=== PATIENT | female | born 1940 | race Caucasian/White ===

== ENCOUNTER 2016-06-12 10:00 | Inpatient (IN) | payer MEDICARE, MEDICAID, OTHER ==
[~2016-06-12] VITALS: Ht 157.5 cm; Wt 94.0 kg
--- NOTE | ~2016-06-12 | PUL ---
PATIENT'S NAME: CM MCMAHON [facility] AGE: 76 Y [address] ROOM: [facility] [place] [address] LOCATION: [facility] ADMIT DATE: 06/12/2016 Pulmonary DISCHARGE DATE: 06/16/2016 FAMILY PHYSICIAN: Physician, Unknown ATTENDING PHYSICIAN: Alex Wolff NAME OF PROCEDURE: Overnight Pulse Oximetry DATE OF PROCEDURE: June 14 to June 15 2016 REASON FOR EXAM: Nocturnal hypoxemia RESULTS: The test was most likely performed on room air. Recording time was 9 hours, 2 minutes, and 48 seconds with total valid sampling of 8 hours 45 minutes and 40 seconds. The highest pulse was 111, lowest pulse was 44, with a mean pulse of 62. Highest SpO2 was 98%, lowest SpO2 was 71% with a mean SpO2 of 89%. The patient spent 3 hours, 32 minutes, and 20 seconds with oxygen saturations less than 89% representing 40.4% of the total sleep time. The desaturation event index was significantly elevated 65.7. PHYSICIAN INTERPRETATION: The patient has evidence of very severe nocturnal hypoxia and would qualify for supplemental oxygen as per Medicare criteria. However because of the severity of her nocturnal hypoxia with an elevated desaturation event index a sleep study is recommended at this time. MD BRO BECKMAN/colette /[id number] dtt: 06/23/16 0942 , SALLY KIMBLE dtd: 06/22/16 1118
--- NOTE | ~2016-06-12 | NDGEN ---
PATIENT'S NAME: [facility] AGE: 76 Y [address] ROOM: [place] [address] LOCATION: [facility] ADMIT DATE: 06/12/2016 Neurodiagnostics DISCHARGE DATE: FAMILY PHYSICIAN: PHYSICIAN, UNKNOWN ATTENDING PHYSICIAN: MITCH PERRY PROCEDURE: ELECTROENCEPHALOGRAM DATE OF PROCEDURE: 06/13/2016 TIME: 8:25 a.m. INDICATIONS: This is a 76-year-old female patient who presents with about a week of progressive confusion, elevation in her creatinine kinase, likely consistent with rhabdomyolysis in the setting of renal failure versus neuroleptic malignant syndrome. FINDINGS: General background rhythm reveals high amplitude 50 to 75 microvolt slow background rhythm in general in theta range that was seen throughout the whole recording. Occasionally, there would be an odd spike that would show up particularly in the left temporal and frontal leads. This was not consistent, but may be associated with a possibility of a brief myoclonic jerk or muscle twitch, and the patient did have some arousal. The background rhythm did speed up to near alpha rhythm of around 8 to 9 Hz which essentially was progressively normal throughout the recording. There was no seizure activity recorded. IMPRESSION: Basically, some slow background rhythm that increased to near normal background rhythm into the recording. There were occasional spikes seen intermittently which may represent a muscle twitch or myoclonic jerk, but this does not seem to be epileptiform in nature. There is no evidence of any seizure activity. MD YO ALLEN/richal PATIENT'S NAME: [facility] AGE: 76 Y [address] ROOM: [place] [address] LOCATION: [facility] ADMIT DATE: 06/12/2016 Neurodiagnostics DISCHARGE DATE: FAMILY PHYSICIAN: PHYSICIAN, UNKNOWN ATTENDING PHYSICIAN: MITCH PERRY /[id number] dtt: 06/29/16 1437 , EDGAR CRUZd: 06/14/16 1849
--- NOTE | ~2016-06-12 | ECHO ---
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 Summary Technically difficult exam due to lung interference. Normal LV/RV size and systolic function. The estimated left ventricular ejection fraction is 60%. Moderate concentric left ventricular hypertrophy. Diastolic assessment reveals Grade II pseudonormal diastolic function . The left atrium is mildly dilated. IVC measures 2.1 cm with partial inspiratory collapse. There is mild to moderate aortic regurgitation by color Doppler. Mild tricuspid regurgitation by color Doppler. There is mild pulmonary hypertension. The pulmonary pressure (RVSP) is 47 mmHg. Procedure Type of Study TTE procedure:2D Echocardiogram, M-Mode, Doppler , Color Doppler. Procedure Date Date: 06/14/2016 Start: 03:27 PM Study Location: Inpatient Portable Technical Quality: Adequate visualization Indications:New onset a-fib. Appropriate Use Criteria: 9 Patient Status: Routine HR: 73 bpm BP: 166/80 mmHg M-Mode/2D Measurements LV Diastolic Dimension: 4.74 cm LV Systolic Dimension: 2.59 cm LV Septum Diastolic: 1.41 cm LV PW Diastolic: 1.34 cm AO Root Dimension: 3.3 cm Cardiac Output: 4.81 l/min AV Cusp Separation: 2 cm RV Diastolic Dimension: 3.82 cm LA volume: 54 ml LVOT: 2 cm RV Base: 3.27 cm LVOT VTI: 21 cm RV Mid: 2.62 cm LV Stroke volume: 65.94 ml TAPSE: 1.93 cm TDI-S': 13.3 cm/s Doppler Measurements AV Peak Velocity: 1.33 m/s MV Peak E-Wave: 1.16 m/s AV Peak Gradient: 7.08 mmHg MV Peak A-Wave: 0.91 m/s AV Mean Gradient: 5 mmHg MV E/A Ratio: 1.28 LVOT Peak Velocity: 0.76 m/s MV P1/2t: 57 msec AV P1/2t: 690 msec TR Gradient:38.69 mmHg PV Peak Velocity: 1.05 m/s Estimated RAP:8 mmHg PV Peak Gradient: 4.41 mmHg Estimated RVSP: 47 mmHg Estimated PASP: 46.69 mmHg E' Septal Velocity: 0.05 m/s A' Septal Velocity: 0.09 m/s E' Lateral Velocity: 0.06 m/s A' Lateral Velocity: 0.11 m/s Findings Left Ventricle The left ventricle is normal in size . Moderate concentric left ventricular hypertrophy. Diastolic assessment reveals Grade II pseudonormal diastolic function . Right Ventricle Normal right ventricle structure and function. Left Atrium The left atrium is mildly dilated. Right Atrium Normal right atrial size. IVC measures 2.1 cm with partial inspiratory collapse. Mitral Valve Mild mitral annular calcification. Trivial mitral regurgitation by color Doppler. Aortic Valve The aortic valve is mildly sclerotic. There is mild to moderate aortic regurgitation by color Doppler. Tricuspid Valve Normal tricuspid valve structure and function. Mild tricuspid regurgitation by color Doppler. There is mild pulmonary hypertension. The pulmonary pressure (RVSP) is 47 mmHg. Pulmonic Valve Normal pulmonic valve structure and function. Mild pulmonic valve regurgitation by color Doppler. Pericardial Effusion No evidence of pericardial effusion. Miscellaneous Visualized portions of the aortic root appear normal in size. The ascending aorta maximum diameter measures 3.8 cm. Pleural Effusion No evidence of pleural effusion. Contractility Score LV regional wall motion:(0-Non visualized 1-Normal 2-Hypokinesis 3-Akinesis 4-Dyskinesis 5-Aneurysm) Signature dtt: GILBERTO DANIEL dtd: 06/14/16 1527 Physician Self Edit
--- NOTE | ~2016-06-12 | HP ---
PATIENT'S NAME: CM MCMAHON [facility] AGE: 76 Y [address] ROOM: G6232 [place], [place] [address] LOCATION: [facility] ADMIT DATE: 06/12/2016 History & Physical DISCHARGE DATE: FAMILY PHYSICIAN: PHYSICIAN, UNKNOWN ATTENDING PHYSICIAN: MITCH PERRY DATE OF SERVICE: CHIEF COMPLAINT: Confusion and elevation of liver function testing as well as rhabdomyolysis. HISTORY OF PRESENT ILLNESS: This is a 76-year-old female, transferred from the outside facility for higher level of care. The patient is currently confused and cannot give any reliable or significant history. I got the history from the outside facility, transferring physician. Based on the outside facility physician, the patient initially went over there on June 11, 2016, in the evening in the emergency room complaining of abdominal pain. At that time, it was believed due to use of ibuprofen, not sure how many tablets, but this is information given to me by the outside facility transferring physician. The patient was sent home without further intervention. At that time, the creatinine was found to be 1.94, GFR 25, not sure what is her baseline given that she does not have much blood work in the computer system over there to compare. She was also found to have mild transaminitis of AST of 71, also not sure what is her baseline. Lipase and amylase were normal. Hemoglobin was 11.3, according to their standards, this is low. Hematocrit was normal 36.2. The patient was sent home. When the patient went home, according to the physician from the outside facility, the patient was complaining of some cough and was becoming confused, and the patient was taken off several medications yesterday by the ER physician from the outside facility; I am not sure which one; there are no records in the computer. GFR was 25 yesterday. The patient was also complaining of chills and feeling cold. The patient was also found to be rigid in her 4 extremities. The patient was brought back to the emergency room at the outside facility in [facility] today on June 12, 2016, for these complaints. Vital signs showed that the patient's blood pressure 109/97 on admission over there, saturation 94% on room air, respirations 20, temperature 99, and a heart rate of 96 sinus tachycardia. Influenza screen was done, was negative. The patient was found to be rigid in 4 extremities and possible hyperreflexia in her knees. Blood work today on June 12, 2016, was not performed, and given that outside facility did not have any idea of what was going on, therefore the patient was transferred here for higher level of care. Chest x-ray was performed today from the outside facility shows borderline cardiomegaly without decompensation. I tried to call the , who is listed in the chart, but nobody answered. PATIENT'S NAME: CM MCMAHON [facility] AGE: 76 Y [address] ROOM: [address] [address] LOCATION: [facility] ADMIT DATE: 06/12/2016 History & Physical DISCHARGE DATE: FAMILY PHYSICIAN: PHYSICIAN, UNKNOWN ATTENDING PHYSICIAN: MITCH PERRY I left a voicemail asking to call back to the neurotrauma unit to speak to the physician to still get more information. No further history could be obtained from the patient. The patient is currently confused and not answering any questions. REVIEW OF SYSTEMS: As mentioned in the history of present illness. All other systems reviewed and negative except those mentioned in the history of present illness. PAST MEDICAL HISTORY: According to the medical records that came with the patient from [facility] say that he has a history of cardiac disorder with angina, hyperlipidemia, and hypertension, again, this is very nonspecific, and this is according to the medical chart from the ER note from the [place], [place]; history of delirium in the past according to the chart; history of pulmonary embolism in the past according to the chart; history of hypothyroidism according to the chart; history of skin squamous cell carcinoma in the past and shingles in the past according to the chart; history of anxiety and depression disorder in the past; history of questionable uterine or cervical cancer according to the chart, this is from the medical chart from the ER over there in [place], [place]. ALLERGIES: FROM THE MEDICAL CHART, IT SAYS THAT PENICILLIN WITH HIVES. HOME MEDICATIONS: Currently is being reconciled. SOCIAL HISTORY: Cannot be obtained from the patient due to confusion. Based on the medical records that came with the patient from [place], [place], it shows that the patient was a former cigarette smoker, not sure how much, not sure when did she quit; no illegal drug use; no alcohol use. PAST SURGICAL HISTORY: From the medical chart, it says total abdominal hysterectomy and bilateral feet surgery in the past from the medical chart. FAMILY HISTORY: Not documented in the chart. Cannot be obtained from the patient due to confusion. PHYSICAL EXAMINATION: VITAL SIGNS: At the time of my dictation, temperature 98.5, heart rate 100, respirations 18, blood pressure 141/70, saturation 98% on room air. PATIENT'S NAME: CM MCMAHON [facility] AGE: 76 Y [address] ROOM: [address] [address] LOCATION: [facility] ADMIT DATE: 06/12/2016 History & Physical DISCHARGE DATE: FAMILY PHYSICIAN: PHYSICIAN, UNKNOWN ATTENDING PHYSICIAN: MITCH PERRY GENERAL APPEARANCE: Alert but confused and disoriented x3. Currently, not in acute distress. She is lying on the bed comfortably and quietly. HEENT: Pupils are equally round and reactive to light. Extraocular muscles cannot be assessed given the patient does not follow commands due to confusion. Pupils size about 4 mm bilaterally, and they are reactive to light bilaterally. Anicteric sclerae. Nasal turbinates are normal bilaterally. Moist oral mucosa. No oral thrush. NECK: No JVD. No cervical lymphadenopathy. No neck stiffness. CARDIOVASCULAR: Tachycardic. No murmur, no rubs, no gallops. RESPIRATORY: Clear. Chest wall nontender to palpation. ABDOMEN: Obese, soft, mildly tender to palpation diffusely, bowel sounds present, no abdominal rigidity, no palpable mass. Nondistended. EXTREMITIES: No edema in upper or lower extremities. NEUROLOGIC: No facial droop. No slurred speech. Pronator drift negative bilaterally. Babinski negative. Sensation intact. Muscle strength intact. I do not appreciate any muscle rigidity. The muscle tone is normal. It is not spastic and also not flaccid. Muscle strength intact 5/5 in both upper and both lower extremities. [id number]-bw-[id number] cannot be obtained given that the patient does not follow commands. [id number] cannot be performed given the patient does not follow commands. She does have hyperreflexia in bilateral knees. I do not appreciate any myoclonic jerks. The patient's skin is not hot to touch. The patient is not flushed. The patient is not diaphoretic. Proprioception and vibration cannot be assessed given the patient does not follow commands and does not answer appropriate questions due to confusion. Gait not assessed due to fall risk. Cranial nerves 2 through 12 cannot be fully assessed given the patient does not follow commands due to confusion. SKIN: No ulcer, no rash, no cyanosis. MUSCULOSKELETAL: No joint pain. No muscle pain. Range of motion intact. No muscle paralysis. The tongue muscle is not spastic or flaccid. The tongue of the muscle is normal. The extremities are not rigid. LABORATORY DATA: Lactic acid 1.5. CPK 12,067. White blood cell 11.1, hemoglobin 11.2, hematocrit 35.7, MCV 84.4, platelet 263. Total protein 7.6, albumin 4.0, AST 210, ALT 113, alkaline phosphatase 77, total bilirubin 0.5. INR 1.02, PTT 23. Urinalysis: 100 leukocyte, few bacteria, positive nitrite, 5-10 white blood cells, 20 to 50 blood, 0-2 red blood cells. Procalcitonin 0.13. IMAGING STUDIES: CT of the brain without contrast showed no clearly acute intracranial abnormality. Moderate severe white matter changes. Portions of the study are degraded by motion. ASSESSMENT AND PLAN: 1. Acute encephalopathy. Differential here is wide. My first differential PATIENT'S NAME: CM MCMAHON [facility] AGE: 76 Y [address] ROOM: [place] [address] LOCATION: [facility] ADMIT DATE: 06/12/2016 History & Physical DISCHARGE DATE: FAMILY PHYSICIAN: PHYSICIAN, UNKNOWN ATTENDING PHYSICIAN: MITCH PERRY will be neuroleptic malignant syndrome given that the patient does have confusion and low-grade fever, and elevation of the CPK as well as elevation of the liver function testing and the muscle rigidity when she was at outside facility according to the ER physician in [place], [place], and low-grade fever. Therefore, the treatment is supportive. For now, I will give her IV fluids for hydration and stop the offending medication given that the patient is a poor historian, cannot give any history due to confusion and medical record is quite incomplete from the outside facility. According to the chart, several medications were discontinued yesterday on June 11, 2016, but they are not documented in the chart, and the patient was started on a new medication with paroxetine and trihexyphenidyl starting on June 11, 2016, according to the chart. I am going to call the ER physician over there again to see which medications they discontinued and what was her home medication list as of June 11, 2016. Several medications can cause neuroleptic malignant syndrome. Therefore, the medication list needs to be clarified, so we can know about the offending medication in this case. If the patient does not improve by tomorrow, then dantrolene should be considered. Second differential here could be serotonin syndrome. I am not sure if she was on any other SSRI before this admission because the medication list is incomplete and the history is incomplete from the outside facility in the medical records. According to the chart, the patient was started on paroxetine on June 11, 2016. She does have a feature consistent with serotonin syndrome as mentioned before, but usually, in serotonin syndrome, one usually does not expect to see elevation of the CPK but more commonly will see hyperreflexia and also myoclonic jerks, which the patient does not have at the moment. However, treatment is very similar as neuroleptic malignant syndrome, first is with supportive care. In this case serotonin syndrome from guideline that recommend IV fluids and IV Ativan for agitation and muscle rigidity and oxygen support if necessary and stop the offending medication. I am going to stop the paroxetine. If the patient does not improve, therefore can consider give the patient cyproheptadine, which I confirmed with our pharmacy and we do have this medication. I will put a consult for Neurology for further assessment, and I will contact the ER physician right now to get more history to see, which medication did they stop yesterday, and what was the home medication list as of June 11, 2016. Vital sign check every [address] head was unremarkable. Regarding her abdominal pain, I will get a CT of abdomen and pelvis without contrast to see if there is any problem over there given the patient is a poor historian. I will put her on Protonix 40 mg p.o. daily for now. Check a TSH as well given that she does take levothyroxine at home, which could mean that she has hypothyroidism. Further plan depends on clinical course. Consult Neurology as mentioned before. 2. Regarding her acute kidney injury, likely secondary to rhabdomyolysis. PATIENT'S NAME: CM MCMAHON [facility] AGE: 76 Y [address] ROOM: G6232 [place] [id number] LOCATION: [facility] ADMIT DATE: 06/12/2016 History & Physical DISCHARGE DATE: FAMILY PHYSICIAN: PHYSICIAN, UNKNOWN ATTENDING PHYSICIAN: MITCH PERRY Given that she does have blood on urinalysis but rarely has red blood cells, this is consistent of rhabdomyolysis in the setting of elevation of CPK. The treatment will be IV fluids. I will give her normal saline running at 150 mL/h for hydration. Monitor urine output. She does have some pyuria and also does have leukocytosis and low-grade fever, I will get blood culture 2 sets and urine culture now and also cover her empirically for urinary tract infection with meropenem. She has allergy to penicillin with hives. Meropenem is a carbapenem and cross-reaction with penicillin is very low. 3. Regarding her transaminitis: This could be in the setting of rhabdomyolysis and also from the possible neuroleptic malignant syndrome or serotonin syndrome as mentioned before. I will trend the liver function testing tomorrow. 4. Regarding her deep venous thrombosis prophylaxis: She will be getting Lovenox subcu dosing per pharmacy to be renally adjusted. Time spent in care on the day of admission 50 minutes including chart review, interviewing the patient, examining the patient, addressing all the questions concerning the patient and the nurses had, and going over the plan of care with the nurses and the patient. I also got a history from the transferring outside facility physician, in I tried to call the patient's listed in the chart, is living in [place]. Nobody answered the phone. I left a voicemail to have him call us back. As of now, the has not called back yet. Further plan depends on clinical course. MITCH PERRY MD CC/richal /[id number] P D: [id number] T: [id number] HISTORY & PHYSICAL
--- NOTE | ~2016-06-12 | CON ---
PATIENT'S NAME: LISANDRO [facility] AGE: 76 Y [address] ROOM: [address] [place], [place] [address] LOCATION: [facility] ADMIT DATE: 06/12/2016 Consultation DISCHARGE DATE: FAMILY PHYSICIAN: PHYSICIAN, UNKNOWN ATTENDING PHYSICIAN: MITCH PERRY DATE OF CONSULTATION: 06/13/2016 REFERRING PHYSICIAN: EDGAR CRUZ MD REFERRING PROVIDER: Dr. Perry. REASON FOR CONSULTATION: Dysphagia. HISTORY OF PRESENT ILLNESS: This is a pleasant, 76-year-old female who was admitted with confusion and elevation of liver function tests. The patient is here on vacation, originally based out of [place]. The patient initially was seen on June 11 with complaints of generalized abdominal pain as well as dysphagia. She previously has a history of esophageal dilation, approximately 6 months ago. She does report that due to the dysphagia, she has undergone numerous esophageal dilations without any relief. She states that a physician out of [place] stated that this is due to vertebrae "pushing on her esophagus." The patient was then sent home at that time from the outside facility. She retreated back to the emergency room in [place] with continued complaints of dysphagia as well as confusion. At that time, the patient was found to be rigid in 4 extremities and possible hyperreflexia. The patient did not have any blood work at that time and was transferred to [facility] for further evaluation. She was admitted with likely rhabdomyolysis as well as acute kidney injury. We were asked to see in consultation for the patient's dysphagia. The patient was seen and examined. She again complains of dysphagia with generalized food and drinks. She does state that she previously had been dilated approximately 6 months ago without any relief of the dysphagia. She does complain of some odynophagia as well as some mid-epigastric discomfort. The patient does use NSAIDs as needed. The patient denies any chest pain, chest pressure, shortness of breath, fever, chills, night sweats, or stated weight loss. PAST MEDICAL HISTORY: Cardiac disorder with angina, hyperlipidemia, hypertension, history of squamous cell carcinoma, hypothyroidism, shingles, anxiety, depression, and questionable uterine or cervical cancer per the medical review. [facility] 76 Y [address] ROOM: [place] [address] LOCATION: [facility] ADMIT DATE: 06/12/2016 Consultation DISCHARGE DATE: FAMILY PHYSICIAN: PHYSICIAN, UNKNOWN ATTENDING PHYSICIAN: MITCH PERRY PAST SURGICAL HISTORY: Total abdominal hysterectomy, bilateral feet surgeries, and upper endoscopy approximately 6 months ago with esophageal dilation with no relief. SOCIAL HISTORY: The patient originally resides in [place], though in [place] for approximately a month on vacation with her . She is a former cigarette smoker/user. Denies any illicit drug use or alcohol use. FAMILY HISTORY: The patient denies any gastrointestinal diseases or cancers, per her recollection. ALLERGIES: PENICILLIN. CURRENT MEDICATIONS: Please refer to the medication administration record. REVIEW OF SYSTEMS: A 10-point review of systems was completed, all were negative except for those identified in the History of Present Illness. PHYSICAL EXAMINATION: GENERAL: A pleasant, 76-year-old female, lying in bed, who appears to be in no acute distress. VITAL SIGNS: Temperature 99.0, pulse is 79, respirations of 18, blood pressure 133/71, and oxygen saturation is 93% on room air. SKIN: [place], warm, and dry. No jaundice. HEENT: Head is normocephalic and atraumatic. Pupils equal, round, and reactive to light. Sclerae are clear, nonicteric. Oral mucosa is pink and moist. No thyromegaly. NECK: Soft and supple. CARDIOVASCULAR: Regular. Normal S1 and S2. RESPIRATORY: Respirations even and unlabored. Lungs clear to auscultation. ABDOMEN: Soft and round. Mildly tender in the midepigastric area with deep palpation. Bowel sounds positive x4 quadrants. No rebound, rigidity, or guarding noted. MUSCULOSKELETAL: No muscle weakness or atrophy. EXTREMITIES: No clubbing, cyanosis, or edema. NEUROLOGICAL: Grossly nonfocal. LABORATORY AND DIAGNOSTIC DATA: Lactate on admission was 1.5. CPK of 3177; on admission, it was 12,067. PATIENT'S NAME: CM MCMAHON [facility] AGE: 76 Y [address] ROOM: [address] [address] LOCATION: [facility] ADMIT DATE: 06/12/2016 Consultation DISCHARGE DATE: FAMILY PHYSICIAN: PHYSICIAN, UNKNOWN ATTENDING PHYSICIAN: MITCH PERRY White blood cell count of 6.7, hemoglobin of 9.7, hematocrit of 31.5, and platelets of 280. Chemistry panel includes a glucose of 116, BUN of 20, creatinine of 1.1, sodium 144, potassium of 3.5, chloride of 110, and CO2 of 26. Albumin of 3.1. AST of 135, ALT of 95, and alkaline phosphatase of 61. Total bilirubin 0.4. Prothrombin time 10.7, INR is 1.02, and PTT of 23. TSH on admission was 2.470. The patient did undergo CT of abdomen and pelvis with contrast on admission on 06/12/2016. Probable tiny gallstones were seen, hysterectomy, as well as no acute findings. ASSESSMENT AND PLAN: Again, this is a pleasant, 76-year-old female who was admitted with abnormal liver enzymes and confusion secondary to rhabdomyolysis. We were asked to see in consultation for stated dysphagia as well as a previous history of esophageal dilation. According to the patient, she does state that her recent dilation completed approximately 6 months ago provided no relief, and it was stated that this was more of a "musculoskeletal issue." At this time, it is recommended for the patient to undergo an esophagram for further evaluation. If esophageal stricture is noted, a possible upper endoscopy will be warranted at that time, though further recommendations to be given status post esophagram. Thank you for this consult and allowing us to participate in the care of this patient. JUANIS SULLIVAN APRN FOR MD CHAYO ZIMMERMAN/modl /[id number] d: 06/14/16 1458 t: 08/01/16 1034, CONSULTATION REPORT
--- NOTE | ~2016-06-12 | DS ---
PATIENT'S NAME: CM MCMAHON [facility] AGE: 76 Y [address] ROOM: [id number] [place], [place] [address] LOCATION: [facility] ADMIT DATE: 06/12/2016 Discharge Summary DISCHARGE DATE: 06/16/2016 FAMILY PHYSICIAN: Physician, Unknown ATTENDING PHYSICIAN: Alex Wolff FINAL DIAGNOSES: 1. Rhabdomyolysis. 2. Acute kidney injury secondary to rhabdomyolysis. 3. Dysphagia. 4. Urinary tract infection. 5. Arrhythmia. 6. Essential hypertension. 7. Nocturnal hypoxia. 8. Daytime somnolence. CONSULTANTS ON THE CASE: Dr. Brown with Cardiology, Dr. Pavon with Gastro, and Dr. Corbett for Neurology. HOSPITAL COURSE: Please see details of admission and H and P by Dr. Wolff. Briefly, the patient was admitted with weakness. Upon her initial workup, she was found to have elevated creatinine at 1.94, GFR equaling 25. She also had significantly elevated [place] enzyme that was 0[address]36+. The patient was found to be confused and encephalopathic. She was running a low-grade fever. It was felt that her condition could be secondary to malignant neuroleptic syndrome. Dr. Corbett was consulted. He agreed with the potential for the neuroleptic syndrome. The patient was started on aggressive IV fluid resuscitation. Home medications were discontinued. Tylenol was utilized for pain. Telemetry monitored the patient at all times. The patient was started on Lovenox for DVT prophylaxis and Merrem for UTI. The patient was worked up for septic syndrome without any positive results. The patient did complain of some chest pain on hospital day 2. We did get an EKG and enzymes, which showed potential for AFib, which showed possible atrial fibrillation. Cardiac enzymes were negative. The patient's chest pain did subside without further treatment. The patient reported chronic cough and stated that she had a history of esophageal stricture with dilations. We did check a chest x-ray, as well as consult GI for further evaluation. The patient's potassium required replacement and that was accomplished without difficulties. Merrem was discontinued. Ceftriaxone was started secondary to sensitivity of the urine. GI evaluated the patient on the and felt that she would benefit from an esophagram. This was accomplished without difficulty or evidence of stricture. The patient had several beats of what looked like supraventricular tachycardia and Cardiology was consulted on the . The patient underwent echocardiogram. Throughout this time, physical, occupational, and speech therapy worked with the patient. Her weakness significantly improved and she PATIENT'S NAME: CM MCMAHON [facility] AGE: 76 Y [address] ROOM: [id number] [place], [place] [address] LOCATION: [facility] ADMIT DATE: 06/12/2016 Discharge Summary DISCHARGE DATE: 06/16/2016 FAMILY PHYSICIAN: Physician, Unknown ATTENDING PHYSICIAN: Alex Wolff was in an independent state prior to her discharge. Cardiology evaluated the patient on 06/14. Short episodes of SVT were noted without significant AFib. It was recommended that the patient undergo 3-day event monitor post hospital stay. On the , the patient did have some elevated blood pressures and Norvasc and hydralazine were initiated. These pressures all came down significantly and on the , it was felt that the patient could safely be discharged home. Nocturnal trend ox study was done, and solidified the need for nocturnal oxygen and further workup. DIAGNOSTICS: CT of the head without contrast shows no acute changes. She does have moderate severe white matter changes. CT of the abdomen and pelvis shows no acute findings. Esophagram shows esophageal dysmotility with moderate-sized hiatal hernia, gastroesophageal reflux, and no filling defect or stricture identified. EEG done on 06/13/2016 shows no significant seizure activity. Echo shows EF of 60%. Moderate concentric left ventricular hypertrophy. Diastolic grade 2 dysfunction. IVC is 2.1 cm, [id number] aortic regurgitation, mild tricuspid regurg, and mild pulmonary hypertension with pressure of 47. Lactate on admission was 1.5 and down to 1.7. On admission, sodium was 145, potassium 3.7, chloride 110, bicarb 25, glucose 107, BUN 24, creatinine 2.2, magnesium was 2.5. Prior to discharge, sodium was 144, potassium 3.6, chloride 108, bicarb 29, glucose 109, BUN 7, creatinine 0.8, mag was 2.0. Serial CPKs showed initial elevation at 12,000. On hospital day 2, was down to around 6000, and down to 431 prior to discharge. Cardiac enzymes again were negative. CPK was 15 on June 13. CBC showed indices within normal limits. Urinalysis did show 5-10 white blood cells and few bacteria on microanalysis. Cultures: Urine culture showed contaminants. Blood culture was no growth to date. DISCHARGE INSTRUCTIONS: The patient is discharged home. Her diet is as tolerated. Activity with no heavy lifting. She is to follow up with her primary care provider in [place] when she returns on July 05. The patient is instructed to get a 30-day heart monitor set up and a sleep study as an outpatient upon returning to [place]. The patient was able to verbalize understanding of these discharge instructions and was discharged in stable condition. MEDICATIONS: 1. Albuterol HFA 1 puff every 4-6 hours as needed. 2. Protonix 40 mg daily. 3. Aspirin 325 mg daily. 4. Levothyroxine 50 mcg daily. 5. Amlodipine 5 mg daily. 6. Acetaminophen 650 mg every 4 hours. 7. Tessalon Perles 100 mg every 6 hours as needed. We do appreciate participating in this patient's care and thank you very much PATIENT'S NAME: CM MCMAHON [facility] AGE: 76 Y [address] ROOM: [place] [address] LOCATION: T ADMIT DATE: 06/12/2016 Discharge Summary DISCHARGE DATE: 06/16/2016 FAMILY PHYSICIAN: Chelsi Crisostomo ATTENDING PHYSICIAN: Alex Wolff for the ability to serve her while hospitalized at [facility]. Time spent coordinating details of discharge was 32 minutes of which was spent coordinating with consulting physician, care management, completion of medication reconciliation, and education to the patient and family on the above-mentioned diagnoses. GABBIE GRANT for JANET TALAVERA MD TRISTAN/modl /[id number] d: 06/17/16 0641 t: 07/11/16 1602, DISCHARGE SUMMARY
--- NOTE | ~2016-06-12 | CON ---
[facility] 76 Y [address] ROOM: [place] [address] [facility] ADMIT DATE: 06/12/2016 Consultation DISCHARGE DATE: FAMILY PHYSICIAN: PHYSICIAN, UNKNOWN ATTENDING PHYSICIAN: MITCH PERRY DATE OF CONSULTATION: 06/14/2016 REFERRING PHYSICIAN: EDGAR CRUZ MD REASON FOR CONSULTATION: Questionable atrial fibrillation. CHIEF COMPLAINT: Confusion. HISTORY OF PRESENT ILLNESS: The patient is a very pleasant 76-year-old female, who was basically admitted with confusion and elevated liver enzymes. She is here on vacation and originally from [place], [place]. She reports she has palpitations off and on. No presyncopal episodes as such. She has had falls from weakness in her legs at least twice in the past 6 months. The patient did not have any fall this admission. She did not lose her consciousness. She has been complaining of abdominal pain as well as dysphagia. She underwent an esophagogram today. She also came in with acute kidney injury that has been improved after IV hydration. She also had rhabdomyolysis this admission and CPK was quite elevated around 6373 and today it is 3177. She reports palpitations off and on, they last for a few minutes, they are not too long. She does not have any chest pain, tightness, pressure, or heaviness. No shortness of breath, dyspnea on exertion, or lower extremity edema. She does not have any fever, chills, night sweats, or weight loss. PAST MEDICAL HISTORY: 1. History of chest discomfort in the past. 2. Hyperlipidemia. 3. Hypertension. 4. History of squamous cell carcinoma. 5. Hypothyroidism. 6. Shingles. 7. Anxiety. 8. Depression. 9. History of possible uterine or cervical cancer per chart review. PAST SURGICAL HISTORY: Total abdominal hysterectomy, bilateral feet surgeries, and upper endoscopy [facility]'S [facility]: 76 Y [address] ROOM: [place] [address] LOCATION: [facility] ADMIT DATE: 06/12/2016 Consultation DISCHARGE DATE: FAMILY PHYSICIAN: PHYSICIAN, UNKNOWN ATTENDING PHYSICIAN: MITCH PERRY about 6 months ago with esophageal dilatation that did not really help improve her symptoms. SOCIAL HISTORY: She resides in [place], [place], and she is here on vacation. She used to smoke, she quit smoking. No illicit drug abuse or alcohol abuse. FAMILY HISTORY: No premature coronary artery disease or sudden cardiac . ALLERGIES: PENICILLIN. HOME MEDICATIONS: 1. Paroxetine 20 daily. 2. Albuterol inhalers. 3. Protonix 40 daily. 4. Aspirin 81 daily. 5. Synthroid 50 mcg. 6. Trihexyphenidyl 2 mg daily. 7. Oxybutynin 5 mg daily. REVIEW OF SYSTEMS: A 10-point review of systems discussed with the patient. Pertinent positives and negatives mentioned in the history of presenting illness. PHYSICAL EXAMINATION: GENERAL: A 76-year-old female, lying in bed, in no apparent distress. VITAL SIGNS: She is afebrile, pulses in the 70s, respirations 14, blood pressure 130/70, and O2 saturation 93% on room air. SKIN: Warm and dry. HEENT: Head is normocephalic. Sclerae nonicteric. NECK: Supple. CARDIOVASCULAR: S1 and S2. Regular rate and rhythm. CHEST: Symmetrical bilaterally. Respirations clear to auscultation bilaterally. ABDOMEN: Soft. Bowel sounds positive. EXTREMITIES: No significant lower extremity edema. NEURO: Grossly normal. Able to move all extremities against gravity. IMAGING: Tele, there were short runs of aberrant conduction with underlying supraventricular tachycardia with less than 10 beats on 2 occasions. The patient was asymptomatic at this time. However, they are sinus beats before and after this episode. PATIENT'S NAME: CM MCMAHON [facility] AGE: 76 Y [address] ROOM: [place] [address] LOCATION: [facility] ADMIT DATE: 06/12/2016 Consultation DISCHARGE DATE: FAMILY PHYSICIAN: PHYSICIAN, UNKNOWN ATTENDING PHYSICIAN: MITCH PERRY Echocardiogram is pending. LABORATORY DATA: Sodium 142, potassium 3.8, chloride 108, CO2 of 29, BUN 14, creatinine 0.8, glucose 102, and magnesium 2.1. IMPRESSION AND PLAN: 1. Short runs of supraventricular ectopics with aberrant conduction. These are less than 10 beats and she did have 2 episodes of them. There is no evidence of any sustained atrial fibrillation or significant tachyarrhythmia on tele since admission. 2. Dysphagia, GI is following the patient. 3. Rhabdomyolysis, CPK is trending down. ? fall 4. Acute kidney injury that has essentially resolved with IV hydration. 5. Urinary tract infection. She is on Rocephin. Given her short run of supraventricular that is lasting less than 10 beats. We have not noticed any afib on telemetry so far. I do think she needs an event monitor for 30 days since she does report palpitations off and on. Given her relative contraindication and 2 episodes of falls in the recent past as well as confusion this admission with rhabdomyolysis, even though she denies fall, I am not completely sure she did not have at this admission as well. She prefers to get her event monitor locally in [place], which is completely reasonable and then I do prefer she followup with her primary care doctor and if there is any evidence of arrhythmia, then recommend Cardiology consultation at [place], [place]. GILBERTO DANIEL MD AT/modl /[id number] d: 06/14/16 2341 t: 06/16/16 1358, CONSULTATION REPORT
--- NOTE | ~2016-06-12 | HP ---
PATIENT'S NAME: CM MCMAHON [facility] AGE: 76 Y [address] ROOM: [facility] [place] [address] LOCATION: [facility] ADMIT DATE: 06/12/2016 History & Physical DISCHARGE DATE: FAMILY PHYSICIAN: PHYSICIAN, UNKNOWN ATTENDING PHYSICIAN: MITCH PERRY DATE OF SERVICE: ADDENDUM: I spoke to the ER physician from the transferring facility in [place], [place]. Yesterday, on June 11, 2016, over there, they decreased the paroxetine from 20 mg p.o. daily to 10 mg p.o. daily and they stopped the ibuprofen 800 mg p.o. t.i.d. p.r.n. and the oxybutynin dose was also decreased, but he was not sure from what dose to what dose. 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 Therefore, the patient has not taken this medication yet. For all the other details, refer to the history and physical dictated previously. MD SONYA BILLINGS/jack /[id number] D: [id number] T: [id number] HISTORY & PHYSICAL
--- NOTE | ~2016-06-12 | CON ---
PATIENT'S NAME: CM MCMAHON [facility] AGE: 76 Y [address] ROOM: [id number] [place] [address] LOCATION: [facility] ADMIT DATE: 06/12/2016 Consultation DISCHARGE DATE: FAMILY PHYSICIAN: PHYSICIAN, UNKNOWN ATTENDING PHYSICIAN: MITCH PERRY DATE OF CONSULTATION: 06/12/2016 REFERRING PHYSICIAN: EDGAR CRUZ MD The patient was seen in neurologic consultation at the request of the hospitalist, Dr. Perry on 06/12/2016 at 6:00 p.m. HISTORY OF PRESENT ILLNESS: Ms. Mcmahon is a 76-year-old female patient with a history of depression, also history of hypertension, history of hypothyroidism, history of GERD, and possibly unknown medical history. She resides with her out in [place], [place] where she sees a primary medical doctor. According to her , approximately 2 weeks ago, she was taking various amounts of medications that her doctor had abruptly stopped. Apparently, he does not know the particular medications that were stopped though it was possibly an issue of polypharmacy. Apparently, her antidepressant was not abruptly stopped, but probably was lowered acutely, but we do not have much more information thereafter. According to the , over the past 2 weeks, she has been a bit more confined to her bed in her trailer where they reside. He states that she had been sleeping almost on a daily basis for nearly 20 hours a day. Her mental status remained fairly normal; however, but she seemed to be more weak and tired in general. Over the past 3 days, noted that she was having more weakness into her lower extremities as well as some pain possibly into her legs as well as pain into her back. She recently had arrived here in [place] to be with their son a few days ago. However, over the past 24 hours, she had an acute mental status change where she got progressively confused and to the point where she was taking off her clothes, putting on house dress to go out and generally not acting appropriately. She went to the local emergency room here before she was transferred, and they noted that she had a mild borderline elevation in her temperature to 99. She had been complaining about some more feeling a bit feverish, however, not much else has been documented. Due to worsening of her mental status, they requested for her transfer here to our hospital with Dr. Perry was initiated. Dr. Perry called me and discussed her findings. He believes that her findings were likely consistent with possibly neuroleptic malignant syndrome based upon and reported that she had some increased tone of her extremities and/or possibly just tonic movements that there may not been the case. She continued to have extreme amounts of confusion, essentially delirious. Upon arrival here to the hospital, she continues to be fairly restless, but sleepy. She was noted to have abnormalities on her laboratory results consistent with PATIENT'S NAME: CM MCMAHON [facility] AGE: 76 Y [address] ROOM: [place] [address] LOCATION: [facility] ADMIT DATE: 06/12/2016 Consultation DISCHARGE DATE: FAMILY PHYSICIAN: PHYSICIAN, UNKNOWN ATTENDING PHYSICIAN: MITCH PERRY [place]habdomyolysis [place] [address]. She had an acute kidney injury with an elevation in creatinine to 2.2, BUN was normal at 24. There were also elevations in her liver function tests including AST of 210 and ALT 113. TSH was within normal limits at 2.40. Her electrolytes and other parameters in her basic metabolic panel were within normal limits and a CBC also done showed a slight elevation in white count to 11.1. Coagulation profile was normal. Of more significance was an abnormality of her urinalysis which showed an elevation in leukocytes in the urine to 100, nitrites also positive and proteinuria also noted, white count elevation of 5- 10 cells per high-power field consistent with a urinary tract infection. She has since been started on antibiotics to cover for this urinary tract infection. In discussions with Dr. Perry, we both have the high suspicion that based upon her presentation with extreme amounts of confusion as well as the elevation in CPK, we may be looking at a neuroleptic malignant syndrome. However, we have no evidence for her being on any neuroleptic. The patient may have been on a certain dopaminergic medication that may have been withdrawn, which could have caused neuroleptic malignant syndrome. However, from standpoint of her mental status at this point, let us treat her supportively. Another etiology for her presentation may simply be that she developed severe rhabdomyolysis associated with her being confined to bed for up to 2 weeks and very rarely coming out of the bed. She may have had some simmering urinary tract infection that eventually simply got out of hand. All in all, we must get more information concerning her medications that she was on in [place] and the medications that were stopped at least 2 weeks ago. PRIOR MEDICAL HISTORY: As mentioned above, history of hypertension, hypothyroidism, possible history of GERD, and history of depression. It is also mentioned a history of polypharmacy, but that is unclear. It is unclear if the patient has been on any dopaminergic medications, for instance for Parkinson disease or for restless legs syndrome. PAST SURGICAL HISTORY: Includes hysterectomy. SOCIAL HISTORY: The patient has been for 48 years. was present here. They both reside in [place] where they met when the was in the [employer]. They do have a son who lives here in [place] whom they came here to visit recently. There is no history currently of alcohol use or smoking. CURRENT MEDICATIONS: Include, 1. Levothyroxine 25 mcg IV daily. 2. Pantoprazole 40 mg IV daily. PATIENT'S NAME: CM MCMAHON [facility] AGE: 76 Y [address] ROOM: [address] [address] LOCATION: [facility] ADMIT DATE: 06/12/2016 Consultation DISCHARGE DATE: FAMILY PHYSICIAN: PHYSICIAN, UNKNOWN ATTENDING PHYSICIAN: MITCH PERRY 3. Meropenem 500 mg IV q.12 hours. 4. Enoxaparin 30 mg subcutaneously q.h.s. 5. Trihexyphenidyl 2 mg daily p.o., held presently. 6. Lorazepam 1 mg 3 times a day p.r.n., agitation. REVIEW OF SYSTEMS: Neurologically, the patient is currently delirious, remains confused and unable to answer any questions though she seems to be less agitated and is answering simple questions with yes and no, but is not oriented to persons in the room. She moves all of her extremities. She does not have any noticeable bruises or excoriations of the skin. Vital signs do reveal some evidence of diastolic hypertension which will be monitored. The rest of a 10-point review of systems is currently within normal limits except for a urinalysis revealing evidence for a urinary tract infection which has been promptly been treated now with antibiotics. PHYSICAL EXAMINATION: GENERAL: The patient is moving around in bed, but is delirious. She does not answer any questions appropriately. She cannot answer questions to self or does not recognize her presently. She is not verbalizing any words. NEUROLOGIC: Cranial nerves 2 through 12 was intact. Motor exam is unable to voluntarily test the patient, but she moves all extremities appropriately. Of most importance, her limb tone is completely normal. No evidence of hypertonicity. There is some evidence of somewhat increased reflexes in all the limbs in both biceps and triceps, as well as patellar reflexes. Ankle jerk reflexes are bit brisk. Plantar reflexes are downgoing. IMPRESSION: Ms. Mcmahon is a 76-year-old female patient who for about 2 weeks has been more or less held up in her bed in her trailer in [place], sleeping long periods of time. She did come with her to the local area to see her son, but she continued to have progressive weakness in her lower extremities and started to have some confusion yesterday. Due to presenting with delirium and remaining delirious, she was sent to our hospital for further workup. She was noted to have a profound elevation in CPK as well as acute kidney injury. The differential diagnosis here would certainly be neuroleptic malignant syndrome if we can identify a medication in the past that was given or possibly withdrawn. Some dopaminergic medications such as parkinsonian medications used in restless legs syndrome could also induce an NMS-type picture. Secondary diagnosis could simply be worsening of her mental status with urinary tract infection and being held up confined to bed over the past 2 weeks. However, the elevation in the CPKs as high is 12,000 is really consistent with a person who had fallen or had been absolutely confined to a bed, that history is somewhat lacking at this point in time. Let us continue with supportive care with IV fluid rehydration as well as antibiotic therapy. PATIENT'S NAME: CM MCMAHON [facility] AGE: 76 Y [address] ROOM: [address] [address] LOCATION: [facility] ADMIT DATE: 06/12/2016 Consultation DISCHARGE DATE: FAMILY PHYSICIAN: PHYSICIAN, UNKNOWN ATTENDING PHYSICIAN: MITCH PERRY I do not think we have a role for the use of a dopaminergic medications such as a bromocriptine due to the fact that she does not have the rigidity nor does she have any fever, dantrolene would not play a role here in her treatment. With supportive care, we would likely hope that her delirium situation would improve over the next 24 hours. We will continue to follow with the Hospitalist Service. MD YO ALLEN/jack /[id number] d: 06/13/16 0300 t: 06/29/16 1434, CONSULTATION REPORT
--- NOTE | ~2016-06-12 | PUL ---
PATIENT'S NAME: CM MCMAHON [facility] AGE: 76 Y [address] ROOM: [place] [address] LOCATION: [facility] ADMIT DATE: 06/12/2016 Pulmonary DISCHARGE DATE: 06/16/2016 FAMILY PHYSICIAN: Physician, Unknown ATTENDING PHYSICIAN: Alex Wolff NAME OF PROCEDURE: Overnight Pulse Oximetry DATE OF PROCEDURE: June 14 to June 15, 2016 REASON FOR EXAM: Nocturnal hypoxemia RESULTS: The test was performed on room air. The recording time was 9 hours, 2 minutes, and 48 seconds, with a total valid sampling time of 8 hours, 45 minutes, and 40 seconds. The highest pulse was 111, lowest pulse was 44, with a mean pulse of 62. The highest SpO2 was 98%, lowest SpO2 was 71%, with a mean SpO2 of 89%. The patient spent 3 hours, 32 minutes and 20 seconds with SpO2 less than 89%, representing 40.4% of the total sleep time. The desaturation event index was significantly elevated at 65.7. PHYSICIAN INTERPRETATION: The patient has evidence of significant nocturnal hypoxia and would qualify for supplemental oxygen as per Medicare criteria. However because of the severity of her nocturnal hypoxia with an elevated desaturation event index a sleep study is recommended at this time. MD BRO BECKMAN/colette /[id number] dtt: 06/20/16 1617 , SLALY KIMBLE dtd: 06/20/16 1514
--- NOTE | 2016-06-12 11:27 | NUR ---
Pt is 76 y/o female admit for delirium,confusion,dystonia for hospitalist. Pt eyes open but pt is cognitively impaired. Answers yes and no to questions but not always the correct answer. Pt unable to state her birthday. No family present. Has a spouse and a son but unknown if and when they are coming. Pt resides in [place], [place] with her . They are here visiting her son. According to H&P from [facility], pt has hx of htn,hyperlipids,PE,hypothyroidism, peptic ulcer,depression,anxiety,renal failure,squamous cell CA,OA joints, cervical/ovarian CA?,dystonia/movement disorder. Allergy to PCN. Came via ambulance from [facility].
[2016-06-12] MEDS ORDERED: PAXIL20 MG PO (11:45)
[2016-06-12] MEDS ORDERED: PROTONIX40 MG PO (11:46)
[2016-06-12] MEDS ORDERED: ASPIRIN LO-DOSE81 MG PO (11:46)
[2016-06-12] MEDS ORDERED: PROVENTIL OR V6.7 GM INH (11:46)
[2016-06-12] MEDS ORDERED: ARTANE2 MG PO (11:47)
[2016-06-12] MEDS ORDERED: LEVOTHROID (SY50 MCG PO (11:47)
[2016-06-12] MEDS ORDERED: DITROPAN5 MG PO (11:49)
[2016-06-12 12:12] LABS: BASOPHIL % 0.3 %; EOSINOPHIL % 0.3 %; HEMATOCRIT 35.7 % (33.0-46.0); HEMOGLOBIN 11.2 g/dL (10.0-15.0); IMMATURE GRANULOCYTE # 0.1 K/uL (0.0-0.3); IMMATURE GRANULOCYTE % 0.5 %; LYMPHOCYTE # 2.8 K/uL (0.8-4.0); LYMPHOCYTE % 25.5 %; MCH 26.5 pg (27.0-34.0); MCHC 31.4 gm/dL (32.0-36.5); MCV 84.4 fl (83.0-98.0); MONOCYTE # 1.3 K/uL (0.0-1.0); MONOCYTE % 11.4 %; MPV 9.3 fl (9.4-12.4); NEUTROPHIL # (ANC) 6.9 K/uL (1.8-7.8); NRBC % 0 /100WBC (0-0.00); PLATELET COUNT 363 K/uL (150-450); RBC 4.23 M/uL (3.50-5.50); RDW-CV 15.2 % (11.9-14.6); WBC 11.1 K/uL (4.0-11.0)
[2016-06-12 12:21] LABS: INR - (THERAPEUTIC) 1.02 (0.92-1.07); PROTIME 10.7 SECONDS (9.8-11.4); PTT 23 SECONDS (25-32)
[2016-06-12 12:27] LABS: BLOOD URINE 250 /UL (NEGATIVE); COLOR URINE YELLOW (YELLOW); GLUCOSE URINE NEGATIVE (NEGATIVE); KETONE URINE 15 mg/dL (NEGATIVE); LEUKOCYTES URINE 100 /UL (NEGATIVE); NITRITE URINE POSITIVE (NEGATIVE); PROTEIN URINE 100 mg/dL (NEGATIVE); SPEC GRAVITY URINE 1.025 (1.003-1.035); TURBIDITY URINE 3+ (CLEAR); UROBILINOGEN URINE 1 mg/dL (NORMAL)
[2016-06-12 12:34] LABS: ALK PHOS 77 IU/L (33-138); ALT 113 IU/L (12-78); AST 210 IU/L (10-40); TOTAL BILIRUBIN 0.5 mg/dL (0.0-1.5); TOTAL PROTEIN 7.6 g/dL (6.0-8.4)
[2016-06-12 12:37] LABS: AMORPHOUS URINE 3+ (NEGATIVE); BACTERIA URINE FEW (NEGATIVE); MUCUS URINE 1+ (NEGATIVE); RBC URINE 0-2 #/HPF (NEGATIVE)
[2016-06-12 12:53] LABS: CPK 12067 IU/L (21-215)
[2016-06-12 13:56] LABS: ANION GAP 13.7 (10.0-19.0); CALCIUM 9.2 mg/dL (8.5-10.5); CREATININE 2.2 mg/dL (0.5-1.1); MAGNESIUM 2.5 mg/dL (1.3-2.6); POTASSIUM 3.7 mMol/L (3.7-5.1)
--- NOTE | 2016-06-12 14:42 | NUR ---
Significant Event: Pt Alert to person. HTN, tachycardic. MD aware. IV to right wrist. Non voluntary movements to all extremities. Not rigid. Incontinent of urine, straight cathed for UA and only had 25mL in bladder. She has only had one small amt of incontinent urine in brief. Foul urine. Positive UTI, started on Merropenum. Placed on 1L/O2. Ativan given x [address] head and abdomen today. Has not tried getting out of bed, but does thrash in the bed. Groins red and patient itches at periarea, [place] washed her hands very frequently. Will not take sips. Dr. Wolff was going to switch all meds to IV. She does have elevated CPK, low dopamine levels, rhabdo. Neuro to see. May need to have Dantrolene tomorrow if Neuro okays the administration. To start on Lovenox tonight. Dx: neuroleptic malignant syndrome. Repositions self constantly. Bed alarm on for safety. Oral cares. Follow up:
--- NOTE | 2016-06-13 01:11 | NUR ---
Significant Event: To start shift pt was not able to follow commands or communicate at all. At about 0000 pt became suddenly very awake conversational alert to self was able to reorient to time and place. Able to follow commands and was able to eat and drink. Pt is on regular diet. Up 1-2 assist. On tele SR. VSS. 2L of O2 sats in mid 90s. Able to void per bedside commode. Inc of urine at times. Generalized bruising throughout. IV to R) wrist running Saline with dextrose at 150ml/hr. On Merropeneum. Follow up:
[2016-06-13 06:07] LABS: HEMATOCRIT 31.5 % (33.0-46.0); HEMOGLOBIN 9.7 g/dL (10.0-15.0); MCH 26.3 pg (27.0-34.0); MCHC 30.8 gm/dL (32.0-36.5); MCV 85.4 fl (83.0-98.0); MPV 9.1 fl (9.4-12.4); RBC 3.69 M/uL (3.50-5.50); RDW-CV 15.3 % (11.9-14.6); WBC 6.7 K/uL (4.0-11.0)
[2016-06-13 06:30] LABS: ALBUMIN 3.1 gm/dL (3.5-5.0); ALK PHOS 61 IU/L (33-138); ALT 95 IU/L (12-78); ANION GAP 11.5 (10.0-19.0); AST 135 IU/L (10-40); BLOOD UREA NITROGEN 20 mg/dL (6-24); CHLORIDE 110 mMol/L (96-110); CO2 26 mMol/L (22-32); CREATININE 1.1 mg/dL (0.5-1.1); POTASSIUM 3.5 mMol/L (3.7-5.1); SODIUM 144 mMol/L (135-145); TOTAL BILIRUBIN 0.4 mg/dL (0.0-1.5); TOTAL PROTEIN 5.9 g/dL (6.0-8.4)
[2016-06-13 06:36] LABS: CPK 5869 IU/L (21-215)
[2016-06-13 06:37] LABS: ESTIMATED GFR (MDRD EQUATION) 49
--- NOTE | 2016-06-13 11:35 | NUR ---
Left a message on what was told to me was patient's Clay's cell #[phone] - asked him to call me back about discharge planning for his . 1215 Received a call that patients was back in the room. Introduced self/role to patient and her Clay. They flew to [place], [place] where patients son lives. Going to stay here a month to see if they would want to move here. Currently they live in [place] in a mobile home park, in a 5th wheel. Her and live in the bedroom part and a daughter sleeps in the kitchen part. Daughter is there to help mom out, they said. There are 4 kids in the [place] area and only one son here in [place]. At this time they could not think of any needs. Planning to discharge to son's home.
[2016-06-13 12:28] LABS: CPK 6373 IU/L (21-215)
--- NOTE | 2016-06-13 17:22 | NUR ---
Significant Event:VSS, first degree AVB. Midsternal chest pain relieved with 0.4mg Nitro SL, rated pain 2-4/10. Second/Third assessments denied chest pain. Lung clear/dim, on RA, harsh cough. Tylenol 650mgpo c/o sore throat at 114o. reports relief. Remains a/o x 3, recognizes family member, follows commands. IV midline placed in L/R upper arms. IV ATB changed to Rocephin, starts tonight. IV fluids changed to 0.45NS with Sodium Bicarbonate. UOP 200ml, pt states bladder feels empty, bladder scan indicated 14ml. MD notified on rounds, with orders given. Transfers to BR with SBA 1/GB. Slightly unsteady. Follow up:CX 2 viewed ordered, awaiting Radiology dept., Monitor.
--- NOTE | 2016-06-14 01:45 | NUR ---
Significant Event: A&OX3. Forgets the name of the town at times but can state she is in the hospital has some problems with exact date at times but reorients. Pt is very hard of hearing. Up 1 assist gaitbelt. On tele VSS. On RA lungs clear. Has non-productive cough has PRN medication ordered. Regular diet. Low urine output. MIdline to L) upper arm running bicarb at 150ml/hr. Midline to R) upper arm SL. Follow up: Esophogram this am
[2016-06-14 04:20] LABS: ALBUMIN 2.9 gm/dL (3.5-5.0); ALK PHOS 65 IU/L (33-138); ALT 94 IU/L (12-78); ANION GAP 8.8 (10.0-19.0); AST 98 IU/L (10-40); BLOOD UREA NITROGEN 14 mg/dL (6-24); CALCIUM 7.9 mg/dL (8.5-10.5); CHLORIDE 108 mMol/L (96-110); CO2 29 mMol/L (22-32); CREATININE 0.9 mg/dL (0.5-1.1); MAGNESIUM 2.1 mg/dL (1.3-2.6); POTASSIUM 3.8 mMol/L (3.7-5.1); SODIUM 142 mMol/L (135-145)
[2016-06-14 04:23] LABS: ESTIMATED GFR (MDRD EQUATION) > 60; TOTAL BILIRUBIN 0.2 mg/dL (0.0-1.5)
[2016-06-14 04:28] LABS: CPK 3177 IU/L (21-215)
--- NOTE | 2016-06-14 13:53 | NUR ---
Significant Event: PATIENT A/O X 3. FOLLOWS COMMANDS. MODERATE STRENGTH. DENIES NUMBNESS/TINGLING. PUPILS 3MM, BRISK. LUNGS CLEAR AND DIM, COUGH NOTED. BOWELS ACTIVE, HAD BM TODAY. C/O HEADACHE THIS AM, RELIEVED WITH TYLENOL. IV IN LEFT UPPER ARM, BICARB INFUSING, ALSO HAS RT UPPER ARM SALINE LOCK. UP WITH 1 ASSIST AND WALKER. WENT DOWN FOR ESOPHOGRAM , JUST NOT GETTING BACK. AWAITING RESULTS OF THAT. TELE CALLED A FEW TIMES TODAY, PATIENT HAD A FEW BEATS OF VTACH OR AFIB, (UNSURE EXACTLY). DR LLOYD CALLED AND THEN THE 2ND TIME B. CAST WAS HERE. NO NEW ORDERS AT THIS TIME. ALARMS ON FOR SAFETY. Follow up: NEURO STATUS. ALARMS. MONITOR TELE
[2016-06-15 05:11] LABS: ALBUMIN 3.1 gm/dL (3.5-5.0); ANION GAP 10.6 (10.0-19.0); BLOOD UREA NITROGEN 7 mg/dL (6-24); CALCIUM 8.5 mg/dL (8.5-10.5); CHLORIDE 108 mMol/L (96-110); CO2 29 mMol/L (22-32); CREATININE 0.8 mg/dL (0.5-1.1); ESTIMATED GFR (MDRD EQUATION) > 60; POTASSIUM 3.6 mMol/L (3.7-5.1); SODIUM 144 mMol/L (135-145)
--- NOTE | 2016-06-15 05:15 | NUR ---
Significant Event: Patient is alert and oriented x3. Forgetful. PERRLA. Equal strength. SBP up in the 200's- hydralazine PO started- PVC's. Room air. Barking cough-PRN cough medicine if needed. Regular diet-active x4. Midlines to the left and right upper arms-sl'd. 1A GB. Patient has slept most of the night. Did c/o a slight FIELDS-tylenol given x2, last at 2330. Follow up: Trend ox this shift. Chance of discharge. Monitor SBP- give hydralazine for SBP greater than 180.
[2016-06-15 05:22] LABS: CPK 1265 IU/L (21-215)
--- NOTE | 2016-06-15 18:20 | NUR ---
Significant Event: Patient is alert and orientated x3. Equal strength. Room air while awake. Does qualify for oxygen at night. first degree AV block, did have episode of bradycardia. Dr. Brown notified. Patient is able to void. No bowel movement today. Regular diet. Denies pain. Up with walker 1 assist, gait belt. Patient started on norvasc today. Blood pressures improved. at bedside. Follow up: Discharge tomorrow 06/16
--- NOTE | 2016-06-16 04:10 | NUR ---
Significant Event: Patient is alert and oriented x3. VSS. Follows commands. Moderate strength. PERRLA. SR with 1st degree AVB. Keep SBP less than 180. No edema-2+ pulses. Regular diet. Bowels are active-last BM 06/15. 1A GB. IV rocephin for UTI. Midlines to left and right upper arms. Room air during days-2L of 02 at [facility]. Follow up: Patient to discharge today 06/15. Devan will set up O2 from [facility] for patient in [facility] and in [place].
[2016-06-16] MEDS ORDERED: NORVASC5 MG PO (14:46)
[2016-06-16] MEDS ORDERED: TYLENOL325 MG PO (14:50)
[2016-06-16] MEDS ORDERED: TESSALON PERLE100 MG PO (14:50)
--- NOTE | 2016-06-16 18:03 | NUR ---
Discharge instructions reviewed with patient and her . Reviewed all medications, need to make a follow up appt with her doctor when she gets back to [place]. Pt refused to have vitals or assessment done prior to leaving. Very anxious to be dismissed. All belongings sent with patient. Verbalizes understanding of all instructions. To front door per w/c.
== END 2016-06-16 15:17 | disposition disaster alternative care site (69) | DRG 92 ==
LOC: GPCU 10:00 → GNTU 10:37
PROVIDERS: Internal Medicine; Physician Assistant; ADMIT Internal Medicine
DX: G21.0 Malignant neuroleptic syndrome (principal); M62.82 Rhabdomyolysis; N17.9 Acute kidney failure, unspecified; R13.10 Dysphagia, unspecified; I47.1 Supraventricular tachycardia; I11.9 Hypertensive heart disease without heart failure; G47.34 Idiopathic sleep related nonobstructive alveolar hypoventilation; N39.0 Urinary tract infection, site not specified; G93.40 Encephalopathy, unspecified; D72.829 Elevated white blood cell count, unspecified; G24.9 Dystonia, unspecified; R74.0 Nonspecific elevation of levels of transaminase and lactic acid dehydrogenase [LDH]; F32.9 Major depressive disorder, single episode, unspecified; F41.9 Anxiety disorder, unspecified; B96.89 Other specified bacterial agents as the cause of diseases classified elsewhere
CPT/HCPCS: C1751; C9113; J0696; J1650; J2060; J2185; J7030; J7042; J7050